=== PATIENT | female | born 1985 | race Caucasian/White ===

== ENCOUNTER 2018-11-16 14:44 | Emergency (ER) | payer OTHER, BC ==
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
[2018-11-16 15:02] VITALS: BP 143/90
--- NOTE | 2018-11-16 15:21 | XRAY Report ---
Reason: pinky inj Procedure Date: 11/16/2018 Accession Number: [id number] / [id number] Procedure: XR - Finger(s) RT CPT Code: FULL RESULT: EXAM: RIGHT FIFTH DIGIT RADIOGRAPHY EXAM DATE: 11/16/2018 03:09 PM. CLINICAL HISTORY: Trauma with pain and swelling COMPARISON: None. TECHNIQUE: 3 views. FINDINGS: Bones: Normal. No fracture or bone lesion. Joints: Normal. No subluxations. Soft Tissues: Normal. No soft tissue swelling. IMPRESSION: No fracture or subluxation. RADIA
== END 2018-11-16 15:33 | disposition home or self-care (01) ==
LOC: ED 14:44
DX: S67.196A Crushing injury of right little finger, initial encounter (principal); R03.0 Elevated blood-pressure reading, without diagnosis of hypertension; Z87.891 Personal history of nicotine dependence; W23.0XXA Caught, crushed, jammed, or pinched between moving objects, initial encounter; Y92.89 Other specified places as the place of occurrence of the external cause; Y99.0 Civilian activity done for income or pay
CPT/HCPCS: 1040M; 73140; 99282; 99283

== ENCOUNTER 2022-06-21 09:06 | Outpatient (CLI) | payer OTHER ==
--- NOTE | 2022-06-21 16:14 | Ultrasound Report ---
LIMITED ULTRASOUND OF LEFT BREAST: 06/21/2022 CLINICAL: Palpable left breast lump. Bruising. Comparison is made to exam dated: 06/21/2022 mammogram - [facility]. Color flow and real-time ultrasound of the left breast 3 o'clock region were performed. Noriega scale images of the real-time examination were reviewed. There is a benign 2.9 cm x 2.2 cm x 0.5 cm irregular shaped, thin, flat, intradermal complicated flui d collection in the left breast at 3 o'clock posterior depth 9 cm from the nipple. This fluid collec tion displays internal echoes and no posterior acoustic shadowing or enhancement. This correlates as palpated and with mammography findings. There is adjacent skin thickening. A tract to the skin guillermo face is not definitively seen. Color flow imaging demonstrates that there is increased vascularity in surrounding tissue. IMPRESSION: BENIGN The 2.9 cm x 2.2 cm x 0.5 cm irregular fluid collection is confined to the skin surface of the left b reast, most likely is a sebaceous cyst, organizing hematoma, less likely infection, and appears benig n. Clinical follow up based on skin appearance is recommended. No underlying breast abnormalities. Screening mammography beginning at age 40 is recommended. Findings and recommendations were conveye d to the patient at time of exam. This exam was interpreted at Station ID: [id number]. Electronically Signed By: Mary maier/:06/21/2022 12:56:20 Ultrasound BI-RADS: 2 Benign BI-RADS CATEGORY: (2) - 2 RECOMMENDATION: (ANNUAL) - Recommend routine annual screening mammography. [id number] 2 year screening LATERALITY: (B)
--- NOTE | 2022-06-21 16:14 | Mammography Report ---
BILATERAL DIGITAL DIAGNOSTIC MAMMOGRAM 3D/2D: 06/21/2022 CLINICAL: Palpable left breast lump, lateral. Baseline mammo. No prior exams were available for comparison. There are scattered fibroglandular elements in both br easts. There is a 2.5 cm oval focal asymmetry with an indistinct margin in the subdermal, superficial left b reast tissue at 1 o'clock posterior depth. This is seen in additional views. This correlates as pa lpated. There is skin thickening associated with the focal asymmetry. No other significant masses, calcifications, or other findings are seen in either breast. There are occasional coarse benign calcifications. IMPRESSION: INCOMPLETE: NEEDS ADDITIONAL IMAGING EVALUATION The 2.5 cm oval focal asymmetry in the left breast most likely is a skin lesion, bruise, cellulitis, or sebaceous cyst, but remains indeterminate. An ultrasound is recommended. This was performed imme diately following this exam. Based on the Tyrer Cuzick model (a risk assessment model) the patients lifetime risk is 11.7% and he r 10 year risk is 1.2%. According to the ACR, ACS, and NCCN guidelines, an annual breast MRI exam kelli ng with mammogram is recommended if the patients lifetime risk is 20% or greater. This exam was interpreted at Station ID: [id number]. NOTE: For mammograms, a report in lay terms will be sent to the patient. Approximately 15% of breast malignancies will not be visualized mammographically. In the management of a palpable breast mass, a negative mammogram must not discourage biopsy of a clinically suspicious lesion. Electronically Signed By: Mary maier/:06/21/2022 10:22:11 ACR BI-RADS Category 0: Incomplete 3340F PARENCHYMAL PATTERN: (A) - The breast(s) demonstrate(s) scattered fibroglandular densities. BI-RADS CATEGORY: (0) - 0 Ultrasound [id number] Immediate follow-up LATERALITY: (B)
== END 2022-06-21 09:07 | disposition home or self-care (01) ==
LOC: DI 09:06
PROVIDERS: ATTEND Physician Assistant Medical
DX: R92.8 Other abnormal and inconclusive findings on diagnostic imaging of breast (principal)